=== PATIENT | male | born 1990 | race Caucasian/White ===

== ENCOUNTER 2018-06-10 08:06 | Day surgery (SDC) | payer OTHER ==
[2018-06-10] MEDS ORDERED: Ringers Lactate 1,000 ML IV ONE (08:25)
[2018-06-10] MEDS ORDERED: ROCURONIUM 50 MG/5 ML VIAL IV ONE (09:57)
[2018-06-10] MEDS ORDERED: PROPOFOL 200 MG/20 ML VIAL IV ONE (09:57)
[2018-06-10] MEDS ORDERED: DEXAMETHASONE 10 MG/ML VIAL ONE (09:57)
[2018-06-10] MEDS ORDERED: FENTANYL CITR 100 MCG/2 ML ONE (09:57)
[2018-06-10] MEDS ORDERED: LIDOCAINE 2% MPF 5 ML VIAL ONE (09:57)
[2018-06-10] MEDS ORDERED: MIDAZOLAM HCL 2 MG/2 ML INJ ONE (10:01)
[2018-06-10] MEDS: BUPIVACA 0.5%/EPI 0.0005%/PF 30 ML VIAL ONE ×2 (10:20→10:40)
[2018-06-10] MEDS ORDERED: MORPHINE 10 MG/ML VIAL ONE (10:47)
--- NOTE | 2018-06-10 10:51 | P.OP ---
Pre-Op Diagnosis: Chronic tonsillitis Post-Op Diagnosis: Chronic tonsillitis Procedure: Tonsillectomy Anesthesia: Other (GA via ETT) Fluids/ Blood products: Other (crystalloid 500ml) Estimated blood loss: Other (10ml) Specimen: Other (left and right tonsils) Findings: chronic inflammation, liths Complications: None Implants: None Indication: Patient persistent issues in spite of good medical management. Details of Operation: The patient was brought to the operating room and placed under general anesthesia via endotracheal tube. The head of bed was turned 90 degrees. A Shoulder roll was placed and the neck extended. A head drape was applied. The McIvor mouth gag was placed and suspended from the Singh stand. The oxygen concentrate was confirmed with the mgmt specialist and was less than forty percent. Weight-based dexamethasone was administered by the mgmt specialist. The soft palate was palpated and there was no submucous cleft. A red rubber catheter was placed in the nose and secured to retract the soft palate. The tonsils were noted to be larger on the right, both cryptic, chronically inflammed with multiple liths. The left tonsil was grasped with a straight Allis clamp. The bovie electocautery was used to incision the mucosa over the anterior pillar and identify the tonsillar capsule. The tonsil was dissected using cautery and blunt dissection until free from soft tissue attachments. A tonsil ball was placed to aid hemostasis. The right tonsil was removed in a similar manner. Bleeding from mid left pole - attempted ligation with 0 vicryl loop for suture fell off. Area packed with epi soaked tonsil ball during removal of right tonsillectomy. After removal, area was hemostatic.. The laryngeal mirror was used to visualize the nasopharynx. The adenoid size was minimal. The adenoids were not removed. Hemostasis was achieved using packing and cautery as needed. All packing was removed. The tonsillar fossae were injected with 0.5% Marcaine with epinephrine. A total of 1 mL was used. A Salum sump orogastric tube was used to decompress the stomach. The red rubber catheter was removed and used to suction the nasopharynx and nasal cavity. The mouth gag was removed; there was no evidence of injury to the lips, teeth or tongue. The mandible was mobile. Disposition: The patient was then awakened from anesthesia and taken to the recovery room in stable condition.
[2018-06-10] MEDS: MORPHINE 4 MG/ML SYR ONE ×4 (11:18→11:49)
[2018-06-10] MEDS ORDERED: ONDANSETRON 4 MG/2 ML VIAL ONE (11:27)
[2018-06-10] MEDS ORDERED: HYDROCOD 2.5mg-ACETAMIN 108mg/5mL Soln ONE (12:46)
[2018-06-10 12:56] VITALS: O2SAT 99
[2018-06-10 13:53] VITALS: BP 140/87; TEMP 97.2
== END 2018-06-10 14:12 | disposition home or self-care (01) ==
LOC: OR 08:06
PROVIDERS: ATTEND Otolaryngology
PROC: 0CTPXZZ Resection of Tonsils, External Approach (ICD-10-PCS; principal; 2018-06-10 09:45)
DX: J35.01 Chronic tonsillitis (principal); G47.33 Obstructive sleep apnea (adult) (pediatric); E11.9 Type 2 diabetes mellitus without complications; Z82.49 Family history of ischemic heart disease and other diseases of the circulatory system
CPT/HCPCS: 88304; J1100; J2250; J2405; J3010

== ENCOUNTER 2018-06-16 23:08 | Observation (INO) | payer OTHER ==
[2018-06-17] MEDS ORDERED: ONDANSETRON 4 MG/2 ML VIAL IV PRN (00:41)
[2018-06-17] MEDS ORDERED: NA CHLORIDE 0.9% 1,000 ML ONE (00:41)
[2018-06-17] MEDS ORDERED: MORPHINE 2 MG/ML SYR IV PRN (00:41)
[2018-06-17] MEDS ORDERED: ACETAMINOPHEN 500 MG TAB PO PRN (00:41)
[2018-06-17 01:22] LABS: Absolute Lymphocytes (CBC) 1.4 K/uL (0.7-4.9); Absolute Monocytes 1.1 K/uL (0.1-1.3); Basophils % 0.2 % (0-1.3); Eosinophils % 0.9 % (0-4.4); Hematocrit 41.9 % (39.6-49.0); Lymphocytes % 12.1 % (15.3-44.8); MCH 29.3 pg (27.0-35.0); MCV 85.9 fL (80-100); MPV 7.4 fL (7.6-11.3); Monocytes % 9.3 % (3.3-12.3); Protime INR 1.06; RBC Red Blood Cell Count 4.87 M/uL (4.33-5.43)
--- NOTE | 2018-06-17 01:25 | ER ---
Nurse's Notes [facility] Name: Terrell Marshall Age: 28 yrs Sex: Male : 1990 Arrival Date: 06/16/2018 Time: 23:09 Bed 24 Private MD: Diagnosis: Postprocedural hemorrhage and hematoma of a respiratory system organ or structure following a procedure Presentation: 06/16 23:23 Presenting complaint: Patient states: he had his tonsills removed on Wednesday and this bb morning he started bleeding again thinks the scab came off one of the incisions. Transition of care: patient was not received from another setting of care. Onset of symptoms was June 16, 2018. Risk Assessment: Do you want to hurt yourself or someone else? Patient reports no desire to harm self or others. Initial Sepsis Screen: Does the patient meet any 2 criteria? No. Patient's initial sepsis screen is negative. Does the patient have a suspected source of infection? No. Patient's initial sepsis screen is negative. Care prior to arrival: None. 23:23 Method Of Arrival: Ambulatory bb 23:23 Acuity: [place] 3 bb Triage Assessment: 23:10 General: Appears comfortable, well groomed, Behavior is calm, cooperative, appropriate fc for age. Pain: Denies pain. EENT: Throat scabs noted from post tonsillectomy . Reports some bleeding from tonsillectomy when he attempted to clear his throat and spits. Denies pain. Neuro: Level of Consciousness is awake, alert, obeys commands, Oriented to person, place, time, situation. Cardiovascular: No deficits noted. Respiratory: No deficits noted. GI: No deficits noted. : No deficits noted. Derm: Skin is pink, warm \T\ dry. Musculoskeletal: Circulation, motion, and sensation intact. Capillary refill < 3 seconds, Range of motion: intact in all extremities. Historical: - Allergies: 23:32 No Known Allergies; bb - Home Meds: 23:32 hydrocodone-acetaminophen 7.5-325 mg/15 mL Oral soln 15 mL every 6 hours [Active]; bb tylenol [Active]; - PMHx: 23:32 None; bb - PSHx: 23:32 Tonsillectomy; bb - Immunization history:: Adult Immunizations up to date. - Social history:: Smoking status: Patient/guardian denies using tobacco, Patient/guardian denies using alcohol, street drugs. - Ebola Screening: : No symptoms or risks identified at this time. - Family history:: not pertinent. Screenin:38 Abuse screen: Denies threats or abuse. Nutritional screening: No deficits noted. fc Tuberculosis screening: No symptoms or risk factors identified. Fall Risk None identified. Assessment: 23:38 Reassessment: No changes from previously documented assessment. Patient and/or family fc updated on plan of care and expected duration. Pain level reassessed. Patient is alert, oriented x 3, equal unlabored respirations, skin warm/dry/pink. see triage assessment. Pain: Denies pain. 06/17 00:20 Reassessment: No changes from previously documented assessment. Patient and/or family fc updated on plan of care and expected duration. Pain level reassessed. Patient is alert, oriented x 3, equal unlabored respirations, skin warm/dry/pink. Dr Carrasco has gone in to see pt and then called Dr Harry. Pt is to be admitted to be seen in am to decide if surg is needed. 00:30 Reassessment: Discussed admission with pt and pt is not sure if he wants to stay. fc Explained AMA and pt states he will discuss with his and let the staff know. 00:46 Reassessment: No changes from previously documented assessment. Patient and/or family fc updated on plan of care and expected duration. Pain level reassessed. Patient is alert, oriented x 3, equal unlabored respirations, skin warm/dry/pink. Dr Carrasco in to speak with pt about admission. 01:05 Reassessment: No changes from previously documented assessment. Patient and/or family fc updated on plan of care and expected duration. Pain level reassessed. Patient is alert, oriented x 3, equal unlabored respirations, skin warm/dry/pink. Pt is aware of pending admission and educated about labs that were drawn. 01:36 Reassessment: After reviewing labs Dr Carrasco ordered Rocephin which pt will get IV fc prior to admission. 01:45 Reassessment: Upon giving pt Rocephin he complained of nausea. Discussed with Dr chema Carrasco and pt given Zofran IVP. Vital Signs: 06/16 23:32 BP 143 / 92; Pulse 91; Resp 16 S; Temp 98(O); Pulse Ox 96% on R/A; Weight 116.12 kg bb (R); Height 6 ft. 3 in. (190.50 cm) (R); Pain 0/10; 06/17 00:30 BP 132 / 83; Pulse 88; Resp 20; Pulse Ox 97% on R/A; Pain 0/10; fc 01:02 BP 130 / 83; Pulse 72; Resp 20; Pulse Ox 99% ; Pain 0/10; fc 01:27 BP 131 / 83; Pulse 73; Resp 20; Temp 98.8(TE); Pulse Ox 99% on R/A; Pain 0/10; fc 06/16 23:32 Body Mass Index 32.00 (116.12 kg, 190.50 cm) bb ED Course: 06/16 23:09 Patient arrived in ED. ds1 23:26 Triage completed. bb 23:32 Arm band placed on Patient placed in an exam room, on a stretcher, on pulse oximetry. bb Family accompanied patient. 23:38 Patient has correct armband on for positive identification. Bed in low position. Call fc light in reach. Pulse ox on. NIBP on. 23:38 No provider procedures requiring assistance completed. 06/17 00:02 Oziel Carrasco MD is Attending Physician. jarocho 00:55 Initial lab(s) drawn, by ct, sent to lab. Inserted saline lock: 20 gauge in right fc antecubital area, using aseptic technique. Blood collected. 01:21 Batsheva Alfaro MD is Hospitalizing Provider. jarocho 01:27 Patient admitted, IV remains in place. fc Administered Medications: 01:00 Drug: NS 0.9% 500 ml Route: IV; Rate: bolus; Site: right antecubital; 01:17 Follow up: Response: No adverse reaction; No change in condition; IV Status: Completed fc infusion; IV Intake: 500ml 01:17 Drug: NS 0.9% 1000 ml Route: IV; Rate: 125 ml/hr; Site: right antecubital; 01:26 Follow up: Response: No adverse reaction; No change in condition; IV Status: Infusion fc continued upon admission; IV Intake: 75ml 01:40 Drug: Rocephin - (cefTRIAXone) 1 grams Route: IVPB; Infused Over: 30 mins; Site: right fc antecubital; 02:08 Follow up: Response: No adverse reaction; No change in condition; IV Status: Completed fc infusion 01:44 Drug: Zofran 4 mg Route: IVP; Site: right antecubital; 02:08 Follow up: Response: No adverse reaction; Nausea is decreased fc 01:44 CANCELLED (Duplicate Order): Zofran 4 mg IVP once; over 2 minutes fc Intake: 01:17 IV: 500ml; Total: 500ml. fc 01:26 IV: 75ml; Total: 575ml. fc Outcome: 01:25 Decision to Hospitalize by Provider. [facility] 01:27 Admitted to Med/surg accompanied by tech, via wheelchair, room 228, with chart, Report fc called to Ghislaine RIVERA 01:27 Condition: good 01:27 Discharge instructions given to patient, family, Instructed on the need for admit, Demonstrated understanding of instructions. 02:09 Patient left the ED. fc Signatures: Oziel Carrasco MD MD cha Chretien, Felicia, RN RN Taylor Jameson ds1 Andria Dennis RN RN bb Corrections: (The following items were deleted from the chart) 06/16 23:36 23:10 General: Appears fc fc
--- NOTE | 2018-06-17 01:25 | EDPHYS ---
Physician Documentation [facility] Name: Terrell Marshall Age: 28 yrs Sex: Male : 1990 Arrival Date: 06/16/2018 Time: 23:09 Bed 24 Private MD: ED Oziel Bose HPI: 06/17 00:30 This 28 yrs old Male presents to ER via Ambulatory with complaints of Post jarocho Surgical Bleeding. 00:30 The patient presents with redness. The problem is located in the left aspect of jarocho posterior pharynx. Onset: The symptoms/episode began/occurred 2 day(s) ago. Duration: The symptoms are chronic. Modifying factors: The symptoms are alleviated by nothing, the symptoms are aggravated by coughing and clearing throat. Associated signs and symptoms: The patient has no apparent associated signs or symptoms. Severity of symptoms: At their worst the symptoms were very mild. The patient has not experienced similar symptoms in the past. Historical: - Allergies: 06/16 23:32 No Known Allergies; bb - Home Meds: 23:32 hydrocodone-acetaminophen 7.5-325 mg/15 mL Oral soln 15 mL every 6 hours [Active]; bb tylenol [Active]; - PMHx: 23:32 None; bb - PSHx: 23:32 Tonsillectomy; bb - Immunization history:: Adult Immunizations up to date. - Social history:: Smoking status: Patient/guardian denies using tobacco, Patient/guardian denies using alcohol, street drugs. - Ebola Screening: : No symptoms or risks identified at this time. - Family history:: not pertinent. ROS: 06/17 00:30 Constitutional: Negative for fever, chills, and weight loss, Eyes: Negative for injury, jarocho pain, redness, and discharge, Neck: Negative for injury, pain, and swelling, Cardiovascular: Negative for chest pain, palpitations, and edema, Respiratory: Negative for shortness of breath, cough, wheezing, and pleuritic chest pain, Abdomen/GI: Negative for abdominal pain, nausea, vomiting, diarrhea, and constipation, Back: Negative for injury and pain, : Negative for injury, bleeding, discharge, and swelling, MS/Extremity: Negative for injury and deformity, Skin: Negative for injury, rash, and discoloration, Neuro: Negative for headache, weakness, numbness, tingling, and seizure, Psych: Negative for depression, anxiety, suicide ideation, homicidal ideation, and hallucinations, Allergy/Immunology: Negative for hives, rash, and allergies, Endocrine: Negative for neck swelling, polydipsia, polyuria, polyphagia, and marked weight changes, Hematologic/Lymphatic: Negative for swollen nodes, abnormal bleeding, and unusual bruising. ENT: Positive for sore throat, 2cm x2cm clot left tonsillar area. Exam: 00:30 Constitutional: This is a well developed, well nourished patient who is awake, alert, jarocho and in no acute distress. Head/Face: Normocephalic, atraumatic. Eyes: Pupils equal round and reactive to light, extra-ocular motions intact. Lids and lashes normal. Conjunctiva and sclera are non-icteric and not injected. Cornea within normal limits. Periorbital areas with no swelling, redness, or edema. Neck: Trachea midline, no thyromegaly or masses palpated, and no cervical lymphadenopathy. Supple, full range of motion without nuchal rigidity, or vertebral point tenderness. No Meningismus. Chest/axilla: Normal chest wall appearance and motion. Nontender with no deformity. No lesions are appreciated. Cardiovascular: Regular rate and rhythm with a normal S1 and S2. No gallops, murmurs, or rubs. Normal PMI, no JVD. No pulse deficits. Respiratory: Lungs have equal breath sounds bilaterally, clear to auscultation and percussion. No rales, rhonchi or wheezes noted. No increased work of breathing, no retractions or nasal flaring. Abdomen/GI: Soft, non-tender, with normal bowel sounds. No distension or tympany. No guarding or rebound. No evidence of tenderness throughout. Back: No spinal tenderness. No costovertebral tenderness. Full range of motion. Male : Normal genitalia with no discharge or lesions. Skin: Warm, dry with normal turgor. Normal color with no rashes, no lesions, and no evidence of cellulitis. MS/ Extremity: Pulses equal, no cyanosis. Neurovascular intact. Full, normal range of motion. Neuro: Awake and alert, GCS 15, oriented to person, place, time, and situation. Cranial nerves II-XII grossly intact. Motor strength 5/5 in all extremities. Sensory grossly intact. Cerebellar exam normal. Normal gait. Psych: Awake, alert, with orientation to person, place and time. Behavior, mood, and affect are within normal limits. 00:30 ENT: Posterior pharynx: Tonsils: with erythema, sp tonsillectomy, clot left tonsil, no active bleeding. Vital Signs: 06/16 23:32 BP 143 / 92; Pulse 91; Resp 16 S; Temp 98(O); Pulse Ox 96% on R/A; Weight 116.12 kg bb (R); Height 6 ft. 3 in. (190.50 cm) (R); Pain 0/10; 06/17 00:30 BP 132 / 83; Pulse 88; Resp 20; Pulse Ox 97% on R/A; Pain 0/10; fc 01:02 BP 130 / 83; Pulse 72; Resp 20; Pulse Ox 99% ; Pain 0/10; fc 01:27 BP 131 / 83; Pulse 73; Resp 20; Temp 98.8(TE); Pulse Ox 99% on R/A; Pain 0/10; fc 06/16 23:32 Body Mass Index 32.00 (116.12 kg, 190.50 cm) bb MDM: 00:[address] [facility] 00:38 Data reviewed: vital signs, nurses notes. [facility] 06/17 00:30 Order name: CBC with Diff; Complete Time: 01:35 [facility] 06/17 00:30 Order name: Comprehensive Metabolic Panel; Complete Time: 01:35 [facility] 06/17 00:30 Order name: PT-INR; Complete Time: 01:35 [facility] 06/17 00:30 Order name: NPO; Complete Time: 00:46 [facility] 06/17 00:43 Order name: NPO; Complete Time: 00:50 EDMS Administered Medications: 01:00 Drug: NS 0.9% 500 ml Route: IV; Rate: bolus; Site: right antecubital; 01:17 Follow up: Response: No adverse reaction; No change in condition; IV Status: Completed fc infusion; IV Intake: 500ml 01:17 Drug: NS 0.9% 1000 ml Route: IV; Rate: 125 ml/hr; Site: right antecubital; 01:26 Follow up: Response: No adverse reaction; No change in condition; IV Status: Infusion fc continued upon admission; IV Intake: 75ml 01:40 Drug: Rocephin - (cefTRIAXone) 1 grams Route: IVPB; Infused Over: 30 mins; Site: right fc antecubital; 02:08 Follow up: Response: No adverse reaction; No change in condition; IV Status: Completed fc infusion 01:44 Drug: Zofran 4 mg Route: IVP; Site: right antecubital; 02:08 Follow up: Response: No adverse reaction; Nausea is decreased 01:44 CANCELLED (Duplicate Order): Zofran 4 mg IVP once; over 2 minutes fc Disposition: 06/17/18 01:25 Hospitalization ordered by Batsheva Alfaro for Observation. Preliminary diagnosis is Postprocedural hemorrhage and hematoma of a respiratory system organ or structure following a procedure. - Bed requested for Telemetry/MedSurg (observation). - Status is Observation. fc - Condition is Stable. - Problem is new. - Symptoms have improved. UTI on Admission? No Signatures: Dispatcher [employer] EDMS Oziel Carrasco MD MD cha Chretien, Felicia RN RN Andria Dennis RN RN Sol Rodriguez ms Corrections: (The following items were deleted from the chart) 01: 01:25 Hospitalization Ordered by Batsheva Alfaro MD for Observation. Preliminary ms diagnosis is Postprocedural hemorrhage and hematoma of a respiratory system organ or structure following a procedure. Bed requested for Telemetry/MedSurg (observation). Status is Observation. Condition is Stable. Problem is new. Symptoms have improved. UTI on Admission? No. jarocho 01:44 01:44 Zofran 4 mg IVP once; over 2 minutes ordered. fc 02:09 01:26 06/17/2018 01:25 Hospitalization Ordered by Batsheva Alfaro MD for Observation. fc Preliminary diagnosis is Postprocedural hemorrhage and hematoma of a respiratory system organ or structure following a procedure. Bed requested for Telemetry/MedSurg (observation). Status is Observation. Condition is Stable. Problem is new. Symptoms have improved. UTI on Admission? No. ms
[2018-06-17 01:33] LABS: ALT/SGPT 36 U/L (12-78); AST/SGOT 30 U/L (15-37); Albumin 3.7 g/dL (3.4-5.0); Alkaline Phosphatase 68 U/L (45-117); BUN Blood Urea Nitrogen 11 mg/dL (7-18); Bicarbonate 28 mmol/L (21-32); Bilirubin Total 0.4 mg/dL (0.2-1.0); Glucose Level 99 mg/dL (74-106); Potassium 4.3 mmol/L (3.5-5.1); Sodium Level 138 mmol/L (136-145)
[2018-06-17] MEDS ORDERED: CEFTRIAXONE 1000 MG/VIAL ONE (01:45)
[2018-06-17] MEDS ORDERED: ONDANSETRON 4 MG/2 ML VIAL ONE (01:48)
[2018-06-17 02:32] VITALS: BMI 32.0
[2018-06-17] MEDS: D5 0.45 NS 1,000 ML IV SCH ×2 (02:50→10:01)
[2018-06-17] MEDS ORDERED: ONDANSETRON 4 MG/2 ML VIAL IV ONE (03:02)
[2018-06-17] MEDS ORDERED: Ringers Lactate 1,000 ML IV ONE (06:27)
[2018-06-17] MEDS ORDERED: BUPIVACAINE 0.25% PF 10 ML VIAL ONE (06:41)
[2018-06-17] MEDS ORDERED: BUPIVACA 0.5%/EPI 0.0005%/PF 30 ML VIAL ONE (06:41)
[2018-06-17] MEDS ORDERED: OXYMETAZOLINE HCL 0.05% 30ML NAS ONE (06:41)
[2018-06-17] MEDS ORDERED: PROPOFOL 200 MG/20 ML VIAL IV ONE (06:59)
[2018-06-17] MEDS ORDERED: FENTANYL CITR 100 MCG/2 ML ONE (06:59)
[2018-06-17] MEDS ORDERED: MIDAZOLAM HCL 2 MG/2 ML INJ ONE (06:59)
[2018-06-17] MEDS ORDERED: LIDOCAINE 2% MPF 5 ML VIAL ONE (07:00)
[2018-06-17] MEDS ORDERED: DEXAMETHASONE 10 MG/ML VIAL ONE (07:00)
[2018-06-17] MEDS ORDERED: ROCURONIUM 50 MG/5 ML VIAL IV ONE (07:00)
[2018-06-17] MEDS ORDERED: MORPHINE 4 MG/ML SYR IV PRN (07:03)
[2018-06-17] MEDS ORDERED: ONDANSETRON HCL 40 MG/20 ML VIAL ONE (07:04)
[2018-06-17] MEDS ORDERED: EPINEPHRINE/PF 1 MG/ML AMP ONE (07:27)
--- NOTE | 2018-06-17 07:33 | P.BOP ---
Preoperative diagnosis: secondary post-tonsillectomy hemorrhage Postoperative diagnosis: same Primary procedure: EUA, control of bleeding Performance Improvement Coordinator: NONE,NONE Estimated blood loss: 10ml Specimen: none Findings: bleeding source at left superior fossa Anesthesia: General Complications: None Implants: none Fluids & blood products: crystalloid 650ml Transferred to: Recovery Room Condition: Good
[2018-06-17] MEDS ORDERED: HYDROCOD 2.5mg-ACETAMIN 108mg/5mL Soln PO PRN (07:44)
[2018-06-17] MEDS: MEPERIDINE HCL 25 MG/0.5 ML ONE ×5 (07:55→08:11)
[2018-06-17 08:09] VITALS: O2SAT 97
[2018-06-17 10:19] LABS: Hematocrit 41.2 % (39.6-49.0)
[2018-06-17 15:21] VITALS: BP 129/79; TEMP 97.3
--- NOTE | 2018-06-17 16:34 | OP ---
Date of Procedure: 06/17/2018 Surgeon: Batsheva Alfaro MD Preoperative Diagnosis: Posttonsillectomy hemorrhage. Postoperative Diagnosis: Posttonsillectomy hemorrhage. Procedure: Exam under anesthesia with control of posttonsillectomy hemorrhage, secondary requiring o perative intervention. Indication For Procedure: Terrell Marshall is a 28-year-old who underwent tonsillectomy. On postoperat lori day 6, he began coughing up small clots at home intermittently. Through the course of the day, h e continued to do this, but did not seek medical attention or advice. Late in the evening, he had co ffee-grounds emesis and proceeded to the emergency room for evaluation. He was noted to have small c lot in the left oropharynx without active bleeding. His H and H were within normal limits. He was h emodynamically stable. Decision was made to defer operative intervention. Overnight, he had no betzy tional bleeding. On exam in the morning, he had persistent clot in the bilateral tonsillar fossa wit hout active bleeding. A decision was made to proceed with operative intervention. Description Of Procedure: The patient was brought to the operating room, he was placed under general anesthesia via oral endotracheal tube. Intubation was challenging. The head of bed was turned 90 d egrees. A shoulder roll was placed and a head drape applied. The McIvor mouth gag was placed and th e mouth was noted to be full of fresh blood. It was sectioned with a Yankauer and the majority of th e blood seemed to be coming from the right side. A Ray-Estephanie was packed to the right pharynx and the l eft tonsillar fossa was examined. There was a stable clot in the tonsillar fossa, and on suctioning the clot there was active bleeding from the superior lateral portion of the fossa. An epinephrine-so aked pledget was applied with direct pressure to this area. A small excoriation on the inferior medi al aspect of the fossa was cauterized. Direct pressure was held to the tonsillar fossa for approxima tely 8 minutes. The Ray-Estephanie in the right pharynx was then removed and the area was examined. There was a small superficial laceration in the mucosa just medial to the tonsillar fossa and thought likel y to be the small intubation injury. With direct pressure, the bleeding subsided. The tonsil pack f rom the left side was then removed and clot was removed from the fossa. There was no further evidenc e of bleeding in this area. The orogastric tube was passed to the stomach for removal of blood, whic h was mild. The McIvor was released to relieve tension and pressure on the pharynx and then carefull y re-examined, and there was no additional bleeding. The McIvor mouth gag was removed. The patient was returned to care of Anesthesia for awakening, extubation, which proceeded without difficulty. Disposition: The patient is transported to the recovery room in stable condition. He will return to the floor and undergo repeat H and H measurements at 10 a.m. I will plan to reassess the patient in the early afternoon. If he is stable and tolerating full liquids, we will plan for discharge home. EMILIANO Voice ID: [id number] Report ID: [id number]
== END 2018-06-17 14:00 | disposition home or self-care (01) ==
LOC: ER 23:08 → ERHOLD 06-17 00:44 → 2ND 06-17 01:23
PROVIDERS: ADMIT Otolaryngology; ATTEND Otolaryngology
PROC: 0W337ZZ Control Bleeding in Oral Cavity and Throat, Via Natural or Artificial Opening (ICD-10-PCS; principal; 2018-06-17 07:00)
DX: K91.840 Postprocedural hemorrhage of a digestive system organ or structure following a digestive system procedure (principal)
CPT/HCPCS: 36415; 80053; 85014; 85018; 85025; 85610; 96361; 96365; 96375; 99285; G0378; J0171; J1100; J2175; J2250; J2270; J2405; J3010; J7030